=== PATIENT | male | born 1970 | race Two or more races ===

== ENCOUNTER 2020-05-26 10:21 | Emergency (ER) | payer OTHER ==
[~2020-05-26] VITALS: Ht 177.8 cm; Wt 90.7 kg
== END 2020-05-26 16:09 | disposition home or self-care (01) ==
LOC: ER 10:21
DX: K62.5 Hemorrhage of anus and rectum (principal)

== ENCOUNTER 2020-07-01 10:23 | Day surgery (SDC) | payer OTHER ==
[~2020-07-01 10:23] MED LIST: NEXIUM20 M1 PO
[2020-07-01] MEDS ORDERED: PERCOCET 5-3251 EACH PO (14:41)
== END 2020-07-01 23:55 | disposition home or self-care (01) ==
LOC: CIR.AMB 10:23
PROVIDERS: ATTEND Surgery
DX: K64.8 Other hemorrhoids (principal); K64.4 Residual hemorrhoidal skin tags; Z20.822 Contact with and (suspected) exposure to COVID-19